=== PATIENT | male | born 1960 | race Caucasian/White ===

== ENCOUNTER 2017-01-31 09:01 | Day surgery (SDC) | payer MEDICAID ==
[~2017-01-31 09:01] MED LIST: Furosemide 20 MG/2 ML VIAL IVPUSH SCH; Lactated Ringers 1,000 ML IV SCH; ceFAZolin 1 GM in Premix Bag 1 BAG IV ONE
[2017-01-31] MEDS ORDERED: Albuterol/Ipratropium 3.0-0.5 MG/3 ML Neb Soln NEB ONE (09:36)
--- NOTE | 2017-01-31 09:36 | PCM.PREANE ---
Preanesthetic Assessment - Anesthesia/Transfusion/Family Hx Anesthesia History: Prior Anesthesia Without Reaction Other Type of Anesthesia Reaction Comment: states he woke up during surgery on left pinkie finger Family History of Anesthesia Reaction: No Transfusion History: No Prior Transfusion(s) Intubation History: Unknown - Review of Systems General: No Symptoms Pulmonary: No Symptoms Cardiovascular: No Symptoms Gastrointestinal: No Symptoms Neurological: No Symptoms Other: Reports: None - Physical Assessment Height: 1.73 m Weight: 63.503 kg ASA Class: 3 Mental Status: Alert & Oriented x3 Airway Class: Mallampati = 2 Dentition: Reports: Partial (upper), Missing Tooth/Teeth (multiple upper and lower jaw) Thyro-Mental Finger Breadths: 3 Mouth Opening Finger Breadths: 2 ROM/Head Extension: Full Lungs: Decreased Breath Sounds, Crackles Cardiovascular: Regular Rate, Regular Rhythm - Allergies Allergies/Adverse Reactions: Allergies Allergy/AdvReac Type Severity Reaction Status Date / Time No Known Allergies Allergy Verified 12/22/15 10:56 - Blood Blood Available: No - Anesthesia Plan Pre-Op Medication Ordered: None - Acknowledgements Anesthesia Type Planned: General Anesthesia Pt an Appropriate Candidate for the Planned Anesthesia: Yes Alternatives and Risks of Anesthesia Discussed w Pt/Guardian: Yes Pt/Guardian Understands and Agrees with Anesthesia Plan: Yes PreAnesthesia Questionnaire HEENT History: Reports: Hard of Hearing, Other (See Below) Other HEENT History: wears glasses, Cardiovascular History: Reports: Other (See Below) (stress test 5 years ago negative) Respiratory History: Reports: COPD (can get up two flights of stairs slowly) Gastrointestinal History: Reports: GERD, Hepatitis Other Gastrointestinal History: hx of hepatitis C over 1 yr ago, tx completed Genitourinary History: Reports: Other (See Below) (bladder tumors) Musculoskeletal History: Reports: Fracture, Other (See Below) Other Musculoskeletal History: occasional muscle cramps Neurological History: Reports: Migraines Other Neuro History: migraines over 20 yrs ago Other Dermatologic History: cystic acne - Past Surgical History Head Surgeries/Procedures: Reports: None Other Male Surgeries/Procedures: low testosterone, bladder tumors at present Musculoskeletal Surgical History: Reports: ORIF Other Musculoskeletal Surgeries/Procedures:: ORIF fx tib-fib Dermatological Surgical History: Reports: Other (See Below) - SUBSTANCE USE Smoking Status *Q: Current Every Day Smoker (now 1/2 ppd) Tobacco Use Within Last Twelve Months: Cigarettes Days Per Week of Alcohol Use: 7 Number of Drinks Per Day: 3 Total Drinks Per Week: 21 Recreational Drug Use History: No - HOME MEDS Home Medications: Home Meds Ipratropium [Atrovent HFA] 2 puff INH ASDIRECTED PRN 01/25/17 [History] Omeprazole 40 mg PO ASDIRECTED PRN 01/25/17 [History] Roflumilast [Daliresp] 1 tab PO DAILY 01/25/17 [History] Testosterone Cypionate [Depo-Testosterone] 1 injection IM WEEKLY 01/25/17 [ History] - CURRENT (IN HOUSE) MEDS Current Meds: Current Medications Lactated Ringer's (Ringers, Lactated) 1,000 mls @ 100 mls/hr IV ASDIRECTED KAYLYNN Discontinued Medications Cefazolin Sodium/Dextrose 1 gm (/ Premix) 50 mls @ 100 mls/hr IV ONCALL ONE Stop: 01/31/17 07:29
[2017-01-31] MEDS ORDERED: Lidocaine 2% 5 ML SDV ONE (11:33)
[2017-01-31] MEDS ORDERED: fentaNYL 100 MCG/2 ML SDV ONE (11:33)
[2017-01-31] MEDS ORDERED: Midazolam 1 MG/ML 2 ML SDV ONE (11:33)
[2017-01-31] MEDS ORDERED: Propofol 200 MG/20 ML SDV ONE (11:33)
[2017-01-31] MEDS ORDERED: ePHEDrine 50 MG/ML SDV ONE (13:19)
[2017-01-31] MEDS ORDERED: fentaNYL 100 MCG/2 ML SDV IVPUSH PRN (13:40)
[2017-01-31 16:16] VITALS: BP 122/70
--- NOTE | 2017-03-03 22:03 | OR ---
SURGEON: Samantha Cardozo M.D. DATE OF PROCEDURE: 01/31/2017 PREOPERATIVE DIAGNOSIS: Bladder tumor. POSTOPERATIVE DIAGNOSIS: Bladder tumor. PROCEDURE: TURBT. DESCRIPTION OF PROCEDURE: The patient was given general anesthesia, placed in dorsal lithotomy position, and prepped and draped in sterile drapes. The resectoscope was introduced in the bladder without difficulty. The tumor was resected in its entirety. At the end of the resection, all tumor pieces were submitted, the base of the tumor was clean, and all bleeding had stopped. A 16-[place] Damon catheter was left in the bladder and will be removed later today. The patient tolerated the procedure well and was moved to the recovery room in good condition. OTILIA / SAMIRA /[id number]
--- NOTE | 2017-07-03 20:17 | PCM.SN ---
- Free Text/Narrative Note: tumor size large
== END 2017-01-31 15:45 | disposition home or self-care (01) ==
LOC: MW.SDS 09:01
PROVIDERS: ATTEND Urology
DX: C67.9 Malignant neoplasm of bladder, unspecified (principal); B18.2 Chronic viral hepatitis C; J44.9 Chronic obstructive pulmonary disease, unspecified; J30.2 Other seasonal allergic rhinitis; F17.210 Nicotine dependence, cigarettes, uncomplicated
CPT/HCPCS: 52224; 88305; A9270; J2250; J3010; J7120; 00912; J2704

== ENCOUNTER 2017-06-13 06:22 | Day surgery (SDC) | payer MEDICAID ==
[2017-06-13] MEDS ORDERED: Propofol 200 MG/20 ML SDV ONE (06:50)
[2017-06-13] MEDS ORDERED: Succinylcholine/Normal Saline 200 MG/10 ML Syringe ONE (06:51)
[2017-06-13] MEDS ORDERED: Rocuronium 10 MG/ML 10 ML Syringe ONE (06:51)
[2017-06-13] MEDS ORDERED: Midazolam 1 MG/ML 2 ML SDV ONE (06:51)
[2017-06-13] MEDS ORDERED: fentaNYL 250 MCG/5 ML SDV ONE (06:51)
[2017-06-13] MEDS ORDERED: Dexamethasone 4 MG/ML 5 ML MDV ONE (06:51)
[2017-06-13] MEDS ORDERED: Ondansetron 4 MG/2 ML SDV ONE (06:51)
[2017-06-13] MEDS ORDERED: Lactated Ringers 1,000 ML IV SCH (07:00)
[2017-06-13] MEDS ORDERED: Sodium Chloride 0.9% 10 ML Syringe FLUSH PRN (07:00)
[2017-06-13] MEDS ORDERED: ceFAZolin 1 GM in Premix Bag 1 BAG IV ONE (07:00)
[2017-06-13] MEDS ORDERED: Sodium Chloride 0.9% 2.5 ML Syringe FLUSH PRN (07:00)
[2017-06-13] MEDS ORDERED: Albuterol/Ipratropium 3.0-0.5 MG/3 ML Neb Soln NEB ONE (07:06)
--- NOTE | 2017-06-13 07:20 | PCM.PREANE ---
Preanesthetic Assessment - Anesthesia/Transfusion/Family Hx Anesthesia History: Prior Anesthesia Without Reaction Other Type of Anesthesia Reaction Comment: states woke up during left pinky finger surgery Family History of Anesthesia Reaction: No Transfusion History: No Prior Transfusion(s) Intubation History: Unknown - Review of Systems General: No Symptoms Pulmonary: No Symptoms Cardiovascular: No Symptoms Gastrointestinal: No Symptoms Neurological: No Symptoms Other: Reports: None - Physical Assessment O2 Sat by Pulse Oximetry: 95 Respiratory Rate: 20 Vital Signs: Last Vital Signs Temp 37.2 C 06/13/17 07:00 Pulse 89 06/13/17 07:00 Resp 20 06/13/17 07:00 BP 153/91 H 06/13/17 07:00 Pulse Ox 95 06/13/17 07:00 Height: 1.73 m Weight: 69.853 kg ASA Class: 3 Mental Status: Alert & Oriented x3 Airway Class: Mallampati = 2 Dentition: Reports: Missing Tooth/Teeth (multiple up front), Caries (all over) Thyro-Mental Finger Breadths: 3 Mouth Opening Finger Breadths: 2 ROM/Head Extension: Limited/Partial Lungs: Normal Respiratory Effort, Rhonchi (bilateral) Cardiovascular: Regular Rate, Regular Rhythm - Allergies Allergies/Adverse Reactions: Allergies Allergy/AdvReac Type Severity Reaction Status Date / Time No Known Allergies Allergy Verified 06/08/17 10:59 - Blood Blood Available: No - Anesthesia Plan Pre-Op Medication Ordered: None - Acknowledgements Anesthesia Type Planned: General Anesthesia Pt an Appropriate Candidate for the Planned Anesthesia: Yes Alternatives and Risks of Anesthesia Discussed w Pt/Guardian: Yes Pt/Guardian Understands and Agrees with Anesthesia Plan: Yes PreAnesthesia Questionnaire HEENT History: Reports: Hard of Hearing, Other (See Below) Other HEENT History: wears glasses, Cardiovascular History: Respiratory History: Reports: COPD, SOB (walking up steps) Gastrointestinal History: Reports: GERD, Hepatitis Other Gastrointestinal History: hx of hepatitis C over 1 yr ago, tx completed Genitourinary History: Reports: Other (See Below) Other Genitourinary History: bladder cancer Musculoskeletal History: Reports: Fracture, Other (See Below) Other Musculoskeletal History: occasional muscle cramps Neurological History: Reports: Migraines Other Neuro History: migraines over 20 yrs ago Oncologic (Cancer) History: Reports: Bladder Other Dermatologic History: cystic acne - Past Surgical History Head Surgeries/Procedures: Reports: None Male Surgical History: Reports: TURBT-Transurethral Resection of Bladder Tumor (01/31/17) Other Male Surgeries/Procedures: low testosterone, bladder cancer Musculoskeletal Surgical History: Reports: ORIF Other Musculoskeletal Surgeries/Procedures:: ORIF fx left tib-fib, surgery left hand little finger (tip of finger amputated) - SUBSTANCE USE Smoking Status *Q: Current Every Day Smoker (now more than 1/2 ppd) Tobacco Use Within Last Twelve Months: Cigarettes Days Per Week of Alcohol Use: 5 Number of Drinks Per Day: 2 Total Drinks Per Week: 10 Recreational Drug Use History: No - HOME MEDS Home Medications: Home Meds Ipratropium [Atrovent HFA] 2 puff INH ASDIRECTED PRN 01/25/17 [History] Roflumilast [Daliresp] 1 tab PO DAILY 01/25/17 [History] Testosterone Cypionate [Depo-Testosterone] 1 injection IM WEEKLY 01/25/17 [ History] - CURRENT (IN HOUSE) MEDS Current Meds: Current Medications Lactated Ringer's (Ringers, Lactated) 1,000 mls @ 100 mls/hr IV ASDIRECTED KAYLYNN Last Admin: 06/13/17 06:50 Dose: 100 mls/hr Cefazolin Sodium/Dextrose 1 gm (/ Premix) 50 mls @ 100 mls/hr IV ONCALL ONE Stop: 06/13/17 07:29 Sodium Chloride (Saline Flush) 10 ml FLUSH ASDIRECTED PRN PRN Reason: Keep Vein Open Sodium Chloride (Saline Flush) 2.5 ml FLUSH ASDIRECTED PRN PRN Reason: Keep Vein Open Discontinued Medications Albuterol/Ipratropium (Duoneb 3.0-0.5 Mg/3 Ml) 3 ml NEB ONETIME ONE Stop: 06/13/17 07:07 Last Admin: 06/13/17 07:15 Dose: 3 ml Dexamethasone (Dexamethasone) Confirm Administered Dose 20 mg .ROUTE .STK-MED ONE Stop: 06/13/17 06:52 Fentanyl (Sublimaze) Confirm Administered Dose 250 mcg .ROUTE .STK-MED ONE Stop: 06/13/17 06:52 Cefazolin Sodium/Dextrose (Ancef) Confirm Administered Dose 50 mls @ as directed .ROUTE .STK-MED ONE Stop: 06/13/17 07:08 Lidocaine HCl (Xylocaine-Mpf 1%) Confirm Administered Dose 5 ml .ROUTE .ST-MED ONE Stop: 06/13/17 06:52 Midazolam HCl (Versed 1 Mg/Ml) Confirm Administered Dose 2 mg .ROUTE .STK-MED ONE Stop: 06/13/17 06:52 Ondansetron HCl (Zofran) Confirm Administered Dose 4 mg .ROUTE .[facility]-MED ONE Stop: 06/13/17 06:52 Propofol (Diprivan 20 Ml) Confirm Administered Dose 200 mg .ROUTE .STK-MED ONE Stop: 06/13/17 06:51 Rocuronium Niland (Zemuron) Confirm Administered Dose 100 mg .ROUTE .[facility]-MED ONE Stop: 06/13/17 06:52 Succinylcholine Chloride (Succinylcholine In Ns Pf) Confirm Administered Dose 200 mg .ROUTE .ST-MED ONE Stop: 06/13/17 06:52
[2017-06-13] MEDS ORDERED: fentaNYL 100 MCG/2 ML SDV IVPUSH PRN (08:19)
--- NOTE | 2017-06-13 09:49 | PCM.POSTAN ---
POST ANESTHESIA ASSESSMENT - MENTAL STATUS Mental Status: Alert, Oriented - RESPIRATORY Respiratory Status: Respiratory Rate WNL, Airway Patent, O2 Saturation Stable - CARDIOVASCULAR CV Status: Pulse Rate WNL, Blood Pressure Stable - GASTROINTESTINAL GI Status: No Symptoms - PAIN Pain Score: 2 - POST OP HYDRATION Hydration Status: Adequate & Stable
--- NOTE | 2017-06-13 10:16 | PCM48HPAN ---
Post Anesthesia Note - EVALUATION WITHIN 48HRS OF ANESTHETIC Vital Signs in Normal Range: Yes Patient Participated in Evaluation: Yes Respiratory Function Stable: Yes Airway Patent: Yes Cardiovascular Function Stable: Yes Hydration Status Stable: Yes Pain Control Satisfactory: Yes Nausea and Vomiting Control Satisfactory: Yes Mental Status Recovered: Yes Resp Rate: 17
--- NOTE | 2017-06-13 10:29 | OR ---
SURGEON: Samantha Cardozo M.D. DATE OF PROCEDURE: 06/13/2017 PREOPERATIVE DIAGNOSIS: History of transitional cell carcinoma of the bladder. POSTOPERATIVE DIAGNOSIS: History of transitional cell carcinoma of the bladder. OPERATION: Cystoscopy and bladder tumor resection, small, right wall. DESCRIPTION: The patient was given general anesthesia, placed in dorsal lithotomy position, prepped and draped in sterile drapes. Cystourethroscopy was done, showed 4 small papillary tumors that were removed using the cold cup biopsy forceps. The base of these was fulgurated using the Bugbee. Three bladder biopsies were done in the same area. This was all at the previous site in the vicinity of the previous bladder tumor resection on the right wall of bladder. The place where the biopsies were done was also fulgurated to prevent bleeding. With that done, the procedure was terminated. The rest of the bladder was visualized and was clean. The bladder was emptied and the patient was moved to recovery room in good condition. OTILIA / SAMIRA /[id number]
[2017-06-13 11:58] VITALS: BP 148/84
--- NOTE | 2017-07-04 14:18 | OR ---
SURGEON: Samantha Cardozo M.D. DATE OF PROCEDURE: 06/13/2017 ADDENDUM: The size of the tumor was medium. OTILIA / SAMIRA /[id number]
== END 2017-06-13 10:50 | disposition home or self-care (01) ==
LOC: MW.SDS 06:22
PROVIDERS: ATTEND Urology
DX: C67.9 Malignant neoplasm of bladder, unspecified (principal); D09.0 Carcinoma in situ of bladder; Z79.899 Other long term (current) drug therapy; J30.1 Allergic rhinitis due to pollen
CPT/HCPCS: 52234; 94640; J0690; J1100; J2250; J2405; J3010; J7120; 00912; 88305; 88307; J2704